=== PATIENT | male | born 1965 | race Caucasian/White ===

== ENCOUNTER 2016-04-04 02:08 | Emergency (ER) | payer SELFPAY ==
[2016-04-04 02:38] VITALS: BP 109/62; PULSE 71; TEMP 98.6; BMI 3436.8
--- NOTE | 2016-04-04 02:42 | EDPRACDOC ---
- General Information Chief Complaint: Foreign Body Stated Complaint: FOREIGN BODY IN EAR Time Seen by Provider: 04/04/16 02:31 Mode Of Arrival: Car Home Medications: Home Medications No Home Medications 05/28/15 Allergies/Adverse Reactions: Allergies Allergy/AdvReac Type Severity Reaction Status Date / Time No Known Allergies Allergy Verified 05/28/15 08:05 - History of Present Illness Onset: today HPI: PT PRESENTS TODAY WITH FB TO LEFT EAR. QTIP. NO PAIN. SLIGHT HEARING LOSS. Foreign Body Context: Reports: After Ear Cleaning, Injury Foreign Body: Other Location of Possible Foreign Body: Ear Pain Severity: None Shortness of breath: None Associated Signs & Symptoms: Reports: None ED Past Medical History - History Reviewed Yes Nurses notes reviewed and agree except as marked - Patient Medical History Neurological History: Denies: Cerebrovascular Accident, Dementia Cardiac History: Denies: Atrial Fibrillation, Hypertension, Congestive Heart Failure, Heart Attack, Hypercholesterolemia Respiratory History: Denies: Asthma, COPD, Emphysema GI/ History: Denies: Gastroesophageal Reflux Psychological History: Denies: Depression Systemic History: Denies: Cancer, Diabetes - Social Medical History Smoking Status: Former smoker EDM Review of Systems - Review of Systems ROS Negative Except as Marked: Yes All systems reviewed and were negative except as marked Constitutional: No Symptoms Reported Eyes: No Symptoms Reported Ears: Hearing Loss Throat: No Symptoms Reported Nose: No Symptoms Reported Respiratory: No Symptoms Reported Cardiovascular: No Symptoms Reported Gastrointestinal: No Symptoms Reported Neurological: No Symptoms Reported Musculoskeletal: No Symptoms Reported Integumentary: No Symptoms Reported - Physical Exam Constitutional: Alert (Awake), No apparent distress Oriented to: Time, Person, Place Last recorded Vital Signs: Last Vital Signs Temp 98.6 F 04/04/16 02:36 Pulse 71 04/04/16 02:36 Resp 16 04/04/16 02:36 BP 109/62 04/04/16 02:36 Pulse Ox 98 04/04/16 02:36 Oxygen Pulse Oxygen Saturation 98 O2 Device Oxygen Flow Rate Fraction of Inspired Oxygen ( FIO2) - HEENT Head: Normal Eye Exam: Normal Oropharynx: Normal Tympanic Membrane: Obscured ENT EAC: Foreign Body Nose: No Symptoms Reported Neck: Normal, Denies Pain, Midline - Respiratory/Cardiovascular Respiratory: Normal - CTA Cardiovascular: Normal - GI Palpation: Normal Tenderness: Non tender - Musculoskeletal Back: Normal Extremities: Normal - Integumentary Skin: Normal Lymphatics: Normal - Neurologic Cranial Nerve: Normal Cerebellar: Normal Mood Description: Normal Thought: Coherent Perception: Normal ED Procedures - Foreign Body Removal Informed of risks, benefits and alternatives described: Yes Informed Consent Signed: Verbal Possible Foreign Body Removal from: Ear Foreign Body removal attempted using: Manual Extraction Removal Attempt aided by: Forceps Removal Attempt was: Successfully Removed Post-procedure exam: No Injury Decision Time to Discharge: 02:42 - Departure Disposition: Home Condition: Good Final Diagnosis: Foreign body in ear Instructions: Ear Foreign Body (ED) Education/Counseling Given To: Patient Education/Counseling Given Regarding: Diagnosis, Treatment, Follow Up Referrals: None,No Provider [Primary Care Provider] - One Week Additional Instructions: STOP USING Q TIPS
== END 2016-04-04 02:48 | disposition home or self-care (01) ==
LOC: ED 02:08
DX: T16.2XXA Foreign body in left ear, initial encounter (principal); X58.XXXA Exposure to other specified factors, initial encounter; Y93.9 Activity, unspecified
CPT/HCPCS: 69200; 99282